=== PATIENT | male | born 1980 | race Caucasian/White ===

== ENCOUNTER 2017-03-25 14:32 | Emergency (ER) | payer OTHER ==
--- NOTE | 2017-03-25 14:57 | PDOC ---
Attending Attestation - Resident Resident Name: Jocelyn Herman - ED Attending Attestation I have performed the following: I have examined & evaluated the patient, The case was reviewed & discussed with the resident, I agree w/resident's findings & plan, Exceptions are as noted - HPI HPI: 03/25/17 15:17 36y M hx of nut allergies, pt had 1/2 bottle of childrens benadryl due to having some throat discomfort after eating a sample of cholate with hazelnuts. pt went to urgent care at [facility] and was given solumedrol and epinephrine. pt noted to be somnolent on exam vitals noted with mild tachycardia pt was immediately examined upon arival pt on colliery clerk ekg shows normal intervals will give pt PO charcoal, time of ingestion approx 13:45 will call [facility] to obtain exact measurement of benadryl and will notify poisons 03/25/17 16:19 Dr. Herman was able to call [facility] and discussed with the NEIGHBORHOOD AIDE who confirmed that the pts dosage approx 150mg of benadryl Dr. Herman also notified poison control for recommendations and to report poisoning. pt a bit somnolent, but otherise stable no signs of anaphylaxis on colliery clerk 03/25/17 18:03 pts back to baseline mental status will repeat vitals will dc with pmd fu return precautions were discussed including for rebound sysmptoms CRITICAL CARE DOCUMENTATION: I spent ~45 minutes of Critical Care time, excluding separately billable procedures, involving high complexity decision making to assess, manipulate and support vital system function(s) to treat single or multiple vital organ system failure and/or to prevent further life threatening deterioration of the patient' s condition. - Physicial Exam PE: 03/26/17 08:18 see above - Medical Decision Making 03/26/17 08:18 see above
[2017-03-25] MEDS ORDERED: SODIUM CHLORIDE 1,000 ML IV ONE (15:00)
[2017-03-25] MEDS ORDERED: CHARCOAL/SORBITOL SOLUTION 25 GM/120 ML BTL PO ONE (15:12)
[2017-03-25 15:20] VITALS: TEMP 98.4; BMI 26.8
[2017-03-25 15:31] LABS: BASOPHIL 0.3 % (0-2.0); EOSINOPHIL 0.4 % (0-4.5); MCHC 33.1 g/dl (32.0-35.9); MEAN CELL VOLUME 87.8 fl (80-96); MEAN PLT VOLUME 8.3 fl (7.5-11.1); NEUTROPHILS 86.2 % (42.8-82.8); PLATELET COUNT 302 K/MM3 (134-434); RDW 13.2 % (11.9-15.9); WHITE BLOOD COUNT 15.8 K/mm3 (4.0-10.0)
[2017-03-25] MEDS ORDERED: CHARCOAL/SORBITOL SOLUTION 25 GM/120 ML BTL ONE (15:31)
--- NOTE | 2017-03-25 15:38 | PDOC ---
History of Present Illness - General Chief Complaint: Allergic Reaction Stated Complaint: Allergic Reaction Time Seen by Provider: 03/25/17 14:42 History Source: Patient Exam Limitations: No Limitations - History of Present Illness Initial Comments: 03/25/17 15:25 This is a 36 yo male with h/o multiple nut allergies who presents with accidental hazelnut ingestion and allergic reaction with subsequent overdose of Benadryl. He forgot his normal EpiPen at home today. He was at [facility] today when at 1 pm he ate a sample of a chocolate bar and didn't realize it had hazelnuts in it. He began having facial and throat swelling and difficulty breathing within about two minutes, which is typical of his allergic reactions. He walked over to the pharmacy and purchased children's Benadryl liquid, and "took a swig" which was about half the bottle (118 mL bottle of 12.5 mg/mL strength). He then went to [facility] where he was dosed with IM epinephrine, IV solumedrol, and IV fluids. He was then transferred here via EMS. The patient now notes resolution of his difficulty breathing and facial/ throat swelling. He notes only dry mouth and upper mid-abdominal discomfort "because the nuts don't digest and they're sitting in my stomach." Past History - Past Medical History Allergies/Adverse Reactions: Allergies Allergy/AdvReac Type Severity Reaction Status Date / Time nut - unspecified Allergy Severe Verified 03/25/17 15:20 NUTS Allergy Severe Uncoded 03/25/17 14:46 Home Medications: Ambulatory Orders Prednisone [Deltasone -] 40 mg PO DAILY #3 tablet 03/25/17 Asthma: No Other medical history: DENIES. - Psycho/Social/Smoking Cessation Hx Anxiety: No Suicidal Ideation: No Smoking Status: No Smoking History: Never smoked Number of Cigarettes Smoked Daily: 0 Hx Alcohol Use: No Drug/Substance Use Hx: No Review of Systems - Review of Systems Able to Perform ROS?: Yes Is the patient limited Marshallese proficient: Yes Constitutional: No: Chills, Fever, Unexplained wgt Loss HEENTM: Yes: Throat Pain ("feels raw"), Throat Swelling (resolved). No: Nose Congestion Respiratory: Yes: Shortness of Breath (resolved). No: Cough Cardiac (ROS): No: Chest Pain, Palpitations ABD/GI: Yes: Other (upper abdominal discomfort). No: Constipated, Diarrhea, Nausea, Vomiting : No: Burning, Dysuria Musculoskeletal: No: Back Pain, Neck Pain Integumentary: No: Bruising, Rash Neurological: No: Headache, Numbness, Tingling, Weakness, Dizziness Endocrine: No: Unexplained Weight Gain, Unexplained Weight Loss *Physical Exam - Vital Signs Last Vital Signs Temp Pulse Resp BP Pulse Ox 98.4 F 90 20 104/85 99 03/25/17 14:42 03/25/17 14:42 03/25/17 14:42 03/25/17 14:42 03/25/17 14:42 - Physical Exam General Appearance: Yes: Nourished, Other (appears very tired but answering questions appropriately and is responsive). No: Apparent Distress HEENT: positive: EOMI, Normal Voice, Hearing Grossly Normal, Other (mild scleral injection bilaterally). negative: Scleral Icterus (R), Scleral Icterus (L), Nasal Congestion Neck: positive: Trachea midline, Supple. negative: Tender, Rigid Respiratory/Chest: positive: Lungs Clear, Normal Breath Sounds. negative: Respiratory Distress, Crackles, Rhonchi, Stridor, Wheezing Cardiovascular: positive: Regular Rhythm, Regular Rate. negative: Murmur Gastrointestinal/Abdominal: positive: Normal Bowel Sounds, Soft. negative: Tender, Organomegaly, Pulsatile Mass, Guarding Musculoskeletal: positive: Normal Inspection. negative: Decreased Range of Motion, Vertebral Tenderness Extremity: positive: Normal Capillary Refill, Normal Inspection, Normal Range of Motion. negative: Tender, Cyanosis Integumentary: positive: Normal Color, Dry, Warm. negative: Erythema, Rash, Bruising Neurologic: positive: hearing stenographer II-XII NML intact, Fully Oriented, Alert, Normal Mood/ Affect, Normal Response, Motor Strength 5/5 Heart Score/ECG Review #1 General ECG Interpretation: Sinus Rhythm (tachycardia), Normal Intervals QRS duration 90 ms, QTc 484 ms, nonspecific ST-T changes ED Treatment Course - LABORATORY CBC & Chemistry Diagram: 03/25/17 15:04 03/25/17 15:04 - Medications Given in the ED: ED Medications Discontinued Medications Generic Name Dose Route Start Last Admin Trade Name Freq PRN Reason Stop Dose Admin Sodium Chloride 1,000 mls @ 1,000 mls/hr 03/25/17 15:00 03/25/17 15:04 Normal Saline - IV 03/25/17 15:59 1,000 mls/hr .Q1H ONE Administration Medical Decision Making - Medical Decision Making 56 yo male with known h/o anaphylaxis with nut ingestion p/w allergic reaction and Benadryl OD. Reportedly took about 150 mg Children's Benadryl liquid, somnolent on arrival to the ED. Treated at with solumedrol and IM epinephrine, IVF. Here in the ED he adamantly denies SI and states this is how he treats his rxns if he has no EpiPen. 03/25/17 15:44 Poison Control consulted (Afia Small) and states toxicity at 400 mg max per day. The patient took well under the dose for serious concerns: With severe toxicity (>1g dose) may have agitation, hallucinations, QRS widening , ventricular arrhythmias, hypotension. With milder toxicity may have HTN, somnolence, mild tachycardia, dry mouth, urine retention. Pt has dry mouth and somnolence. PC recommends monitoring, another IVF bolus, keeping very well hydrated especially with hot weather. 03/25/17 17:53 Pt reexamined and is less somnolent, states feeling well and asking for water. States throat feels raw but no difficulty breathing, no reported swelling to face. His will be able to pick him up and go home with him on discharge. Wants to be discharged home, states he thought he needed 50 mL Benadryl, not 50 mg. Agrees to take smaller dose (or measure out the dose if possible) next time. 03/25/17 18:05 Vitals repeated and within normal limits. Pt counseled on Benadryl dosing, prednisone Rx, return precautions, safe for discharge home with . *DC/Admit/Observation/Transfer Diagnosis at time of Disposition: Allergic reaction Qualifiers: Encounter type: initial encounter Qualified Code(s): T78.40XA - Allergy, unspecified, initial encounter Diphenhydramine overdose Qualifiers: Encounter type: initial encounter Injury intent: accidental or unintentional Qualified Code(s): T45.0X1A - Poisoning by antiallergic and antiemetic drugs, accidental (unintentional), initial encounter - Discharge Dispostion Disposition: HOME Condition at time of disposition: Stable Admit: No - Prescriptions Prescriptions: Prednisone [Deltasone -] 40 mg PO DAILY #3 tablet - Referrals Referrals: Elizabeth Villela MD [Primary Care Provider] - - Patient Instructions Printed Discharge Instructions: DI for General Allergic Reactions, DI for Drug Overdose in Adults Additional Instructions: You were seen today for an allergic reaction to hazelnuts, and a Benadryl overdose. Your allergic reaction has improved with the epinephrine and solumedrol (a steroid) that was given to you by the urgent care center before you arrived to the ED. You took about 3 times the amount of Benadryl needed, which probably did help resolve your symptoms but which also qualifies as an overdose of Benadryl. This can cause its own set of problems. In the future, if you do not have your EpiPen and you need to take Benadryl, please take about 50 mg of Benadryl, or about 20 mL of the Children's Benadryl liquid (it's not a one -to-one ratio). We are sending you home with a 3-day course of prednisone to prevent your allergic reaction symptoms from returning. Sometimes, the reaction symptoms can return within a day because the epinephrine effect is short-lived. This is why the Prednisone is important to take (40 mg once a day for 3 days). Thank you for entrusting us with your care! - Attestations Physician Attestion: 03/25/17 16:02 I, Dr. Jocelyn Herman, attest that this document has been prepared under my direction and personally reviewed by me in its entirety. I further attest, that it accurately reflects all work, treatment, procedures and medical decision -making performed by me.
[2017-03-25 15:54] LABS: ALBUMIN 3.6 g/dl (3.4-5.0); ANION GAP 8 (8-16); BILIRUBIN,TOTAL 0.9 mg/dL (0.2-1.0); CALCIUM 8.5 mg/dL (8.5-10.1); CO2 27 mmol/L (21-32); GLUCOSE,RANDOM 220 mg/dL (74-106); SGPT/ALT 30 U/L (12-78); TOT PROT 6.5 g/dl (6.4-8.2)
[2017-03-25 15:55] LABS: ALK PHOS 100 U/L (45-117)
[2017-03-25 15:57] LABS: SGOT/AST 24 U/L (15-37)
[2017-03-25 18:08] VITALS: BP 132/70; PULSE 88
--- NOTE | 2017-03-26 14:57 | EKG ---
Test Reason : Blood Pressure : / mmHG Vent. Rate : 103 BPM Atrial Rate : 103 BPM P-R Int : 164 ms QRS Dur : 090 ms QT Int : 370 ms P-R-T Axes : 054 069 039 degrees QTc Int : 484 ms SINUS TACHYCARDIA NONSPECIFIC ST ABNORMALITY ABNORMAL ECG NO PREVIOUS ECGS AVAILABLE Confirmed by REBECCA TOPETE, SHY ([id number]) on 03/26/2017 2:56:55 PM Referred By: Confirmed By:SHY FERNANDEZ MD
== END 2017-03-25 18:32 | disposition home or self-care (01) ==
LOC: JER 14:32
PROC: 3E0337Z Introduction of Electrolytic and Water Balance Substance into Peripheral Vein, Percutaneous Approach (ICD-10-PCS; principal; 2017-03-25)
DX: T78.1XXA Other adverse food reactions, not elsewhere classified, initial encounter (principal); T78.05XA Anaphylactic reaction due to tree nuts and seeds, initial encounter; X58.XXXA Exposure to other specified factors, initial encounter; T45.0X1A Poisoning by antiallergic and antiemetic drugs, accidental (unintentional), initial encounter; Y92.59 Other trade areas as the place of occurrence of the external cause
CPT/HCPCS: 36415; 80053; 85025; 93005; 93010; 99285-25